=== PATIENT | female | born 1965 | race Caucasian/White ===

== ENCOUNTER 2020-10-23 20:58 | Observation (INO) | payer OTHER ==
[~2020-10-23] VITALS: Ht 177.8 cm; Wt 124.7 kg
[2020-10-23 22:25] LABS: HEMOGLOBIN 14.6 gm/dl (12.3-15.3); RED BLOOD COUNT 4.82 M/UL (4.00-5.10); WHITE BLOOD COUNT 11.8 K/UL (4.5-11.0)
[2020-10-23 22:46] LABS: BUN/CREATININE RATIO 26 (0-10)
[2020-10-24] MEDS ORDERED: NITROGLYCERIN0.4 MG SL (01:48)
[2020-10-24] MEDS ORDERED: CARVEDILOL6.25 MG PO (01:48)
[2020-10-24] MEDS ORDERED: ALDACTONE 25MG25 MG PO (01:49)
[2020-10-24] MEDS ORDERED: CLONIDINE HCL0.1 MG PO (01:49)
[2020-10-24] MEDS ORDERED: FUROSEMIDE20 MG PO (01:50)
[2020-10-24] MEDS ORDERED: MELOXICAM15 MG PO (01:51)
[2020-10-24] MEDS ORDERED: LEVOTHYROXINE175 MCG PO (01:51)
[2020-10-24] MEDS ORDERED: LISINOPRIL40 MG PO (01:51)
[2020-10-24] MEDS ORDERED: PROVENTIL HFA6.7 GM INH (01:52)
[2020-10-24] MEDS ORDERED: OMEPRAZOLE20 MG PO (01:53)
[2020-10-24] MEDS ORDERED: PREMARIN1.25 MG PO (01:53)
[2020-10-24] MEDS ORDERED: FERROUS SULFAT325 MG PO (01:54)
[2020-10-24] MEDS ORDERED: CLARITIN 10MG T10 MG PO (01:54)
[2020-10-24] MEDS ORDERED: MONTELUKAST SOD10 MG PO (01:55)
[2020-10-24] MEDS ORDERED: VITAMIN C1000 MG PO (02:07)
[2020-10-24] MEDS ORDERED: VITAMIN D3125 MCG PO (02:07)
--- NOTE | 2020-10-24 15:18 | NUR ---
1505 Patient returned to Room 4106 per [employer] Staff. Patient awake, alert. V/S stable. Dressing intact to right groin, no bleeding noted. Denies pain/discomfort. Instructed on lying flat until 5pm, voiced understanding. Call light in reach.
--- NOTE | 2020-10-24 19:44 | NUR ---
1919- CONTACTED BOTTOM WORKER . PT STATED SHE WAS TOLD SHE WOULD BE DISCHARGED TONIGHT BUT NOTHING IN THE PTS ORDERS OR PROGRESS NOTES REFLECTED THIS. MD STATED THAT SHE COULD BE DISCHARGED PER CARDIOLOGYS STANDPOINT. CONTACTED IMMEDIATELY WHO STATED HE WOULD PREFER THE PT STAYED OVERNIGHT FOR MONITORING AND WOULD DISCHARGE HER FIRST THING IN THE AM.
== END 2020-10-25 12:50 | disposition home or self-care (01) ==
LOC: ER1 20:58 → CDU 23:21 → MED SURG 4 23:21
PROVIDERS: Physician Assistant; ADMIT Internal Medicine
DX: I20.0 Unstable angina (principal); I10 Essential (primary) hypertension; E03.9 Hypothyroidism, unspecified; J45.909 Unspecified asthma, uncomplicated; E66.9 Obesity, unspecified; Z68.39 Body mass index [BMI] 39.0-39.9, adult; Z20.822 Contact with and (suspected) exposure to COVID-19; Z23 Encounter for immunization; Z85.42 Personal history of malignant neoplasm of other parts of uterus; Z98.890 Other specified postprocedural states; Z82.49 Family history of ischemic heart disease and other diseases of the circulatory system; Z79.899 Other long term (current) drug therapy
CPT/HCPCS: 36415; 71045; 80053; 80061; 82550; 82553; 83874; 83880; 84484; 85025; 85610; 85730; 93005; 99152; 99153; 99285; C1760; C1769; G0278; G0378; J1644; J2250; J3010; J7120; Q9967; U0002

== ENCOUNTER → 2020-11-04 | Outpatient (CLI) | payer OTHER ==
[~2020-11-04] MED LIST: ALDACTONE 25MG25 MG PO; CARVEDILOL6.25 MG PO; CLARITIN 10MG T10 MG PO; CLONIDINE HCL0.1 MG PO; FERROUS SULFAT325 MG PO; FUROSEMIDE20 MG PO; LEVOTHYROXINE175 MCG PO; LISINOPRIL40 MG PO; MELOXICAM15 MG PO; MONTELUKAST SOD10 MG PO; NITROGLYCERIN0.4 MG SL; OMEPRAZOLE20 MG PO; PREMARIN1.25 MG PO; PROVENTIL HFA6.7 GM INH; VITAMIN C1000 MG PO; VITAMIN D3125 MCG PO
== END ==
LOC: SLEEP 14:38
DX: R29.818 Other symptoms and signs involving the nervous system (principal); R53.83 Other fatigue; I10 Essential (primary) hypertension; R06.02 Shortness of breath
CPT/HCPCS: 95810

== ENCOUNTER 2020-11-10 11:54 | Emergency (ER) | payer OTHER | END 2020-11-10 13:46 | disposition home or self-care (01) | LOC: ER1 11:54 | DX: I10 Essential (primary) hypertension (principal); E03.9 Hypothyroidism, unspecified; J45.909 Unspecified asthma, uncomplicated; Z90.710 Acquired absence of both cervix and uterus | CPT/HCPCS: 93005; 99283 ==

== ENCOUNTER → 2021-04-01 | Outpatient (CLI) | payer OTHER | LOC: HEART 5 14:13 | DX: J45.909 Unspecified asthma, uncomplicated (principal); R06.02 Shortness of breath; Z87.891 Personal history of nicotine dependence | CPT/HCPCS: 94010; 95012 ==

== ENCOUNTER → 2021-04-28 | Outpatient (CLI) | payer OTHER | LOC: HEART 5 14:09 | DX: R06.02 Shortness of breath (principal) | CPT/HCPCS: 71046 ==

== ENCOUNTER → 2022-02-12 | Day surgery (SDC) | payer OTHER ==
[~2022-02-12] MED LIST changes: +BREO ELLIPTA 21 EACH INH; +CARVEDILOL12.5 MG PO; -CARVEDILOL6.25 MG PO; +FERROUS SULFAT325 M1 PO; -FERROUS SULFAT325 MG PO; +HYDROCHLOROTHIA25 MG PO; +LEVOTHYROXINE100 MCG PO; -LEVOTHYROXINE175 MCG PO; +MODAFINIL100 MG PO; +ONDANSETRON ODT4 MG PO; +OXYCODONE-ACET1 EACH PO; +PROMETHAZINE HC25 M1 PO; +PROTONIX40 MG PO; +SPIRIVA RESPIMAT; +STOOL SOFT-STI1 EACH PO; +VALSARTAN160 MG PO; +[UNRECOGNIZED DRUG - OTHER]
== END | disposition home or self-care (01) ==
LOC: OR 05:29
DX: C25.9 Malignant neoplasm of pancreas, unspecified (principal); C79.9 Secondary malignant neoplasm of unspecified site; I10 Essential (primary) hypertension; J45.909 Unspecified asthma, uncomplicated; K21.9 Gastro-esophageal reflux disease without esophagitis; E03.9 Hypothyroidism, unspecified; E78.00 Pure hypercholesterolemia, unspecified; Z87.891 Personal history of nicotine dependence; Z72.89 Other problems related to lifestyle; Z79.1 Long term (current) use of non-steroidal anti-inflammatories (NSAID); Z79.899 Other long term (current) drug therapy
CPT/HCPCS: 71045; 77001; C1769; C1788; J0690; J1100; J1642; J2001; J2405; J2704; J7040

== ENCOUNTER → 2022-02-20 | Outpatient (CLI) | payer OTHER | LOC: RT 10:30 | DX: R06.02 Shortness of breath (principal) | CPT/HCPCS: 36600; 82803 ==

== ENCOUNTER 2022-03-10 14:29 | Observation (INO) | payer OTHER ==
[~2022-03-10] VITALS: Ht 177.8 cm; Wt 127.0 kg
[~2022-03-10 14:29] MED LIST changes: -CEFUROXIME500 MG PO; -ELIQUIS 5 MG TAB5 MG PO; -ELIQUIS5 MG PO; -MAGIC MOUTHWASH PO; -MIRALAX17 GM PO; -MORPHINE SULFAT15 MG PO; -MORPHINE SULFAT30 M4 PO; -NARCAN4 MG; -NOVOLIN 70100 UNIT/2 SQ; -NOVOLIN R100 UNIT/1 INJ; -OXYCODONE HCL10 MG PO; -SPIRIVA RESPIMAT4 GM INH
[2022-03-10 15:40] LABS: HEMOGLOBIN 11.6 gm/dl (12.3-15.3); RED BLOOD COUNT 3.96 M/UL (4.00-5.10); WHITE BLOOD COUNT 5.1 K/UL (4.5-11.0)
[2022-03-10 16:40] LABS: BUN/CREATININE RATIO 14 (0-10)
[2022-03-10] MEDS ORDERED: NOVOLIN 70100 UNIT/2 SQ (18:02)
[2022-03-10] MEDS ORDERED: NARCAN4 MG (18:05)
[2022-03-10] MEDS ORDERED: NOVOLIN R100 UNIT/1 INJ (18:09)
[2022-03-10] MEDS ORDERED: SPIRIVA RESPIMAT4 GM INH (18:17)
[2022-03-10] MEDS ORDERED: OXYCODONE HCL10 MG PO (18:23)
[2022-03-10] MEDS ORDERED: MORPHINE SULFAT15 MG PO (18:26)
[2022-03-11 06:33] LABS: HEMOGLOBIN 12.1 gm/dl (12.3-15.3); RED BLOOD COUNT 4.07 M/UL (4.00-5.10); WHITE BLOOD COUNT 6.2 K/UL (4.5-11.0)
[2022-03-11 07:37] LABS: BUN/CREATININE RATIO 15 (0-10)
[2022-03-12 06:13] LABS: HEMOGLOBIN 12.2 gm/dl (12.3-15.3); RED BLOOD COUNT 4.1 M/UL (4.00-5.10)
[2022-03-12 06:29] LABS: BUN/CREATININE RATIO 19 (0-10)
[2022-03-12] MEDS ORDERED: ELIQUIS 5 MG TAB5 MG PO (13:56)
== END 2022-03-12 15:23 | disposition home or self-care (01) ==
LOC: ER1 14:29 → MED SURG 4 17:02 → CDU 17:02 → MED SURG 4 22:26
PROVIDERS: Emergency Medicine; Physician Assistant Medical; ADMIT Internal Medicine
DX: I26.99 Other pulmonary embolism without acute cor pulmonale (principal); C25.9 Malignant neoplasm of pancreas, unspecified; E11.9 Type 2 diabetes mellitus without complications; I10 Essential (primary) hypertension; E78.5 Hyperlipidemia, unspecified; J45.909 Unspecified asthma, uncomplicated; E03.9 Hypothyroidism, unspecified; I81 Portal vein thrombosis; K55.059 Acute (reversible) ischemia of intestine, part and extent unspecified; K59.00 Constipation, unspecified; E66.01 Morbid (severe) obesity due to excess calories; J96.91 Respiratory failure, unspecified with hypoxia; J98.11 Atelectasis; Z92.21 Personal history of antineoplastic chemotherapy; Z85.42 Personal history of malignant neoplasm of other parts of uterus
CPT/HCPCS: ECHO; 36415; 80048; 80053; 82550; 82553; 82962; 83735; 84484; 85025; 85027; 85610; 85730; 93306; 93970; 94640; 94664; 94760; 96372; 99285; G0378; J1650

== ENCOUNTER → 2022-03-10 | Outpatient (CLI) | payer OTHER ==
[~2022-03-10] MED LIST changes: +CEFUROXIME500 MG PO; +ELIQUIS 5 MG TAB5 MG PO; +ELIQUIS5 MG PO; +MAGIC MOUTHWASH PO; +MIRALAX17 GM PO; +MORPHINE SULFAT15 MG PO; +MORPHINE SULFAT30 M4 PO; +NARCAN4 MG; +NOVOLIN 70100 UNIT/2 SQ; +NOVOLIN R100 UNIT/1 INJ; +OXYCODONE HCL10 MG PO; +SPIRIVA RESPIMAT4 GM INH
== END ==
LOC: CT 08:00
DX: R10.84 Generalized abdominal pain (principal); G89.3 Neoplasm related pain (acute) (chronic); C25.9 Malignant neoplasm of pancreas, unspecified; R94.31 Abnormal electrocardiogram [ECG] [EKG]; I26.99 Other pulmonary embolism without acute cor pulmonale; I81 Portal vein thrombosis; K55.059 Acute (reversible) ischemia of intestine, part and extent unspecified; C78.7 Secondary malignant neoplasm of liver and intrahepatic bile duct; C78.6 Secondary malignant neoplasm of retroperitoneum and peritoneum
CPT/HCPCS: 93005; Q9967

== ENCOUNTER 2022-03-17 17:15 | Inpatient (IN) | payer OTHER ==
[~2022-03-17] VITALS: Ht 177.8 cm; Wt 129.7 kg
[~2022-03-17 17:15] MED LIST changes: +ELIQUIS 5 MG TAB5 MG PO; +MORPHINE SULFAT15 MG PO; +NARCAN4 MG; +NOVOLIN 70100 UNIT/2 SQ; +NOVOLIN R100 UNIT/1 INJ; +OXYCODONE HCL10 MG PO; +SPIRIVA RESPIMAT4 GM INH
[2022-03-17 18:21] LABS: HEMOGLOBIN 12.3 gm/dl (12.3-15.3); RED BLOOD COUNT 4.07 M/UL (4.00-5.10); WHITE BLOOD COUNT 16.6 K/UL (4.5-11.0)
[2022-03-17] MEDS ORDERED: MORPHINE SULFAT30 M4 PO (23:54)
[2022-03-17] MEDS ORDERED: MIRALAX17 GM PO (23:56)
[2022-03-18 06:42] LABS: HEMOGLOBIN 11.6 gm/dl (12.3-15.3); RED BLOOD COUNT 3.97 M/UL (4.00-5.10); WHITE BLOOD COUNT 15.3 K/UL (4.5-11.0)
[2022-03-18] MEDS ORDERED: ONDANSETRON ODT4 MG PO (10:46)
[2022-03-18] MEDS ORDERED: CEFUROXIME500 MG PO (10:46)
[2022-03-18] MEDS ORDERED: ELIQUIS 5 MG TAB5 MG PO (10:46)
[2022-03-18] MEDS ORDERED: MAGIC MOUTHWASH PO (10:59)
[2022-03-18] MEDS ORDERED: ELIQUIS5 MG PO (12:18)
== END 2022-03-18 14:03 | DRG 92 ==
LOC: ER1 17:15 → MED SURG 4 21:37 → CDU 21:37 → MED SURG 4 23:26
PROVIDERS: Physician Assistant; ADMIT Internal Medicine
DX: G92.8 Other toxic encephalopathy (principal); C25.9 Malignant neoplasm of pancreas, unspecified; Z68.41 Body mass index [BMI] 40.0-44.9, adult; N30.90 Cystitis, unspecified without hematuria; Z20.822 Contact with and (suspected) exposure to COVID-19; Z51.5 Encounter for palliative care; E11.9 Type 2 diabetes mellitus without complications; E66.01 Morbid (severe) obesity due to excess calories; G89.3 Neoplasm related pain (acute) (chronic); E03.9 Hypothyroidism, unspecified; T40.605A Adverse effect of unspecified narcotics, initial encounter; M54.9 Dorsalgia, unspecified; Z86.711 Personal history of pulmonary embolism; Z79.01 Long term (current) use of anticoagulants; Z86.718 Personal history of other venous thrombosis and embolism; Z82.49 Family history of ischemic heart disease and other diseases of the circulatory system; Z90.49 Acquired absence of other specified parts of digestive tract; Z90.710 Acquired absence of both cervix and uterus
CPT/HCPCS: 70450; 71045; 80048; 80053; 81001; 82140; 82533; 82607; 82962; 84439; 84443; 85025; 85610; 85652; 85730; 86140; 87040; 96374; 96375; 99285; J0696; J2270; J2543